=== PATIENT | male | born 1960 | race Caucasian/White ===

== ENCOUNTER 2016-05-20 09:57 | Day surgery (SDC) | payer MEDICAID, MEDICARE ==
[~2016-05-20] VITALS: Ht 175.3 cm; Wt 78.0 kg
--- NOTE | 2016-05-20 08:22 | PCM.HPANE ---
Patient Data Surgeon Admitting Provider: Attending Provider:Corey Patel MD Primary Care Physician:Marcela Mackenzie PA-C Other Provider:Andres Weir Anesthesia Reason for Visit Lower Abdominal Pain, Melena Ht/WT & BMI Body Mass Index Allergies Coded Allergies: acetaminophen (Verified Allergy, Severe, SWELLING IN THROAT, 05/20/16) dextromethorphan (Verified Allergy, Severe, SWELLING IN THROAT, 05/20/16) doxylamine (Verified Allergy, Severe, SWELLING IN THROAT, 05/20/16) pseudoephedrine (Verified Allergy, Severe, SWELLING IN THROAT, 05/20/16) Medications Reported Medications Omeprazole 20 Mg Tablet.dr20 Mg PO DAILY 05/20/16 Risperidone (Risperdal)1 Mg Tablet1 Mg PO BID #30 TABLET Ref 0 05/19/16 Albuterol HFA (Proair HFA)8.5 Gm Hfa.aer.ad2 Puffs INHALATION Q4H PRN For Shortness of Breath #1 INHALER 05/19/16 Methylphenidate ER 18 Mg Jwvvni79 Mg PO DAILY Ref 0 05/19/16 Gabapentin 300 Mg [id number] Mg PO DIRECTED PRN For Pain Ref 0 05/19/16 Citalopram 40 Mg Tpjitd37 Mg PO DAILY 30 Days Ref 0 05/19/16 Fluticasone/Salmeterol (Advair 250-50 Diskus)60 Puff/Inh Disk2 Puff IH BID #1 DISK Ref 0 05/19/16 History History of ENT Problems?: No Hx of Heart Problems?: No Respiratory History: Positive for:: COPD Hx Neurologic Problems?: No Hx of GI Problems?: Yes Hx of Problems?: No HX of Peritoneal Dialysis: No Hx Surgeries?: No Stop/Bang Treated for Sleep Apnea?: No Do You Have a CPAP Machine?: No Risk Assessment Category Category 1A: Patient has history of documented sleep apnea, and HAS NOT received any narcotic, sedative or anesthesia administration during this stay. Category 1B: Patient has history of documented sleep apnea, and HAS received any narcotic , sedative or anesthesia administration during this stay Category 2: Patient has SUSPECTED Obstructive Sleep Apnea, and HAS received any narcotic , sedative or anesthesia administration during this stay. Category 3: Patient has SUSPECTED Obstructive Sleep Apnea and HAS NOT received narcotic, sedative or anesthesia administration during this stay. Category 4: Outpatient in Procedural Areas with known sleep apnea or who screen positive for High Risk via the STOP/BANG questionnaire. Exam Exam General Appearance: Alert, Oriented X3, Cooperative, No Acute Distress HEENT/AIRWAY: MP 2 Lungs: Clear to Auscultation, Normal Air Movement Heart: Exam Unremarkable, Regular Rate/Rhythm, No Murmurs/Rubs/Gallops Plan Impression Patient chart reviewed, patient interviewed and anesthestic plan with risks, benefits, and alternatives discussed, and informed consent obtained. ASA Physical Status: ASA2 Mod Systemic Disease Anesthetic Plan: MAC Bene/Risks/Altern/Consents: Yes HP Complete Prior to Induction: Yes Osmin Weiner MD May 20, 2016 08:22
[~2016-05-20 09:57] MED LIST: ADV250INH IH; ALBU8.5H2 INHALATION; CITA40TA13 PO; GABA-502 PO; Lactated Ringer's 1,000 ML IV ONE; METH18TA12 PO; RISP1TAB90 PO
[2016-05-20] MEDS ORDERED: Ketamine 10 mg/mL 20 mL Inj ONE (09:58)
[2016-05-20] MEDS ORDERED: fentaNYL-PF 50 mCg/mL 2 mL Inj ONE (09:58)
[2016-05-20 10:53] VITALS: BP 126/84; PULSE 61; RESP 16; O2SAT 97
[2016-05-20] MEDS ORDERED: OMEP20TA86 PO (10:53)
[2016-05-20] MEDS ORDERED: MetoCLOpramide 5 mg/mL 2 mL Inj IVPUSH PRN (11:40)
[2016-05-20] MEDS ORDERED: Ondansetron 2 mg/mL 2 mL Inj IVPUSH PRN (11:40)
[2016-05-20] MEDS ORDERED: Lactated Ringer's 1,000 ML IV SCH (11:40)
[2016-05-20 12:27] VITALS: BP 107/71; PULSE 59; RESP 16; O2SAT 92
[2016-05-20 12:36] VITALS: BP 121/89; PULSE 57; RESP 16; O2SAT 94
[2016-05-20 12:41] VITALS: BP 127/92; PULSE 59; RESP 16; O2SAT 94
--- NOTE | 2016-05-20 13:54 | ENDO ---
[address] [address] ENDOSCOPY PROCEDURE PATIENT: DAVID CELESTE : 1960 MR#: [id number] ADMIT: 05/20/2016 JOB ID: [id number] DATE OF SERVICE: 05/20/2016 FIRST PROCEDURE PERFORMED: Esophagogastroduodenoscopy. INDICATION: History of melena. ASA CLASSIFICATION, MALLAMPATI SCORE AND MEDICATIONS: Please see anesthesia report for details regarding ASA classification, Mallampati score and medications. INSTRUMENT USED: [id number]. PROCEDURE DETAILS: After informed consent was obtained, the patient was brought into the GI suite, where he was placed on oxygen via nasal cannula and monitored with continuous pulse oximeter, telemetry, and blood pressure monitoring. A time-out was performed. Then, he was placed in the left lateral decubitus position, and medications were administered for sedation. A bite block was placed. A standard EGD scope was inserted through the bite block and advanced under direct visualization to the second portion of the duodenum without difficulty. FINDINGS: 1. Normal appearing duodenal bulb, first and second portions. 2. Normal appearing pylorus and antrum. In the proximal gastric body there was blood seen as we withdrew the scope. However, this was not initially seen when we advanced the scope past the GE junction into the antrum. I suspect the mild oozing of blood that was seen may be related to trauma. However, the mucosa there also appeared to be mildly friable and therefore, multiple biopsies were obtained. This area measured approximately a cm x 8 mm. 3. Hiatal hernia was noted. The diaphragmatic hiatus was at approximately 43 cm, and this area of friable mucosa was just below the diaphragmatic hiatus. 4. The GE junction was at approximately 38 cm. 5. Arising from the GE junction there were several tongues of short salmon-colored mucosa suggestive of Saldana's. Multiple biopsies were obtained in the distal esophagus. The remainder of the esophageal exam is otherwise unremarkable. IMPRESSION: 1. Friable mucosa versus scope trauma in the proximal gastric body. 2. Await biopsy results. 3. Hiatal hernia. 4. Irregular gastroesophageal junction. RECOMMENDATIONS: 1. Continue PPI b.i.d. 2. Await biopsy results. 3. Proceed to colonoscopy. COMPLICATIONS: None. ESTIMATED BLOOD LOSS: Less than 5 mL. SECOND PROCEDURE PERFORMED: Colonoscopy. INDICATION: Lower abdominal pain. ASA CLASSIFICATION, MALLAMPATI SCORE AND MEDICATIONS: Please see above for ASA classification, Mallampati score and medications. INSTRUMENT USED: [id number]-[id number]. PREPARATION QUALITY: Fair. PROCEDURE DETAILS: After completion of the EGD exam, a digital rectal exam with palpation of the prostate was performed which was unremarkable. The colonoscope was then inserted into the rectum and advanced under direct visualization to the cecum, which was identified by the presence of the ileocecal valve and appendiceal orifice. Once the cecum was reached, the colonoscope was withdrawn back to the rectum as the mucosa and lumen were examined. In the rectum, retroflexion was performed. Following retroflexion, remaining air in the rectum was suctioned, and procedure was completed. FINDINGS: 1. In the descending colon, there were four polyps that ranged in size from 3 mm to 5 mm. All polyps were removed using a cold snare. 2. Retroflexed views in the rectum were unremarkable. IMPRESSION: 1. Four descending colon polyps. 2. No findings to explain patient's abdominal pain. RECOMMEND: Urology consultation. A recent CT scan did show some mild urinary bladder thickening. COMPLICATIONS: None. ESTIMATED BLOOD LOSS: Less than 5 mL.
--- NOTE | 2016-05-20 14:10 | PCM.ANEP2 ---
Post Anesthesia Evaluation ASA/CMS Post Anesthesia VS in Patient's Normal Range?: Yes Resp Stable; Airway Patent?: Yes CV Function & Hydration Stable: Yes Mental Status Recovered?: Yes Pain control Satisfactory?: Yes N/V Control Satisfactory?: Yes Osmin Weiner MD May 20, 2016 14:10
--- NOTE | 2016-05-20 14:10 | PCM.ANEP1 ---
Post Anesthesia Phase 1 PACU Phase 1 Assessment Vital Signs Vital Signs Date Time Temp Pulse Resp B/P Pulse Ox O2 Delivery O2 Flow Rate FiO2 05/20/16 12:41 59 16 127/92 94 Room Air 05/20/16 12:36 57 16 121/89 94 Room Air 05/20/16 12:27 36.0 59 16 107/71 92 Room Air 05/20/16 10:53 36.6 61 16 126/84 97 Room Air Anesthetic Administered: MAC Level of Alertness: Awake, talking CAMPA's with Equal Strength: Yes Pain: No Nausea or Vomiting: No Oxygen Delivery: Nasal Cannula Lungs: Clear to Auscultation, Normal Air Movement Dermatome Level: Full Sensation Osmin Weiner MD May 20, 2016 14:10
--- NOTE | 2016-05-21 15:33 | PATH ---
SURGICAL PATHOLOGY Attending Physician:Joseline Pepe CASE STATUS: Signed Out PATIENT NAME: DAVID CELESTE PID: [id number] : 1960 DATE COLLECTED:05/20/2016 19:52 SPECIMEN: 1: Gastric, Biopsy 2: Esophagus, Biopsy 3: Colon, Biopsy CLINICAL HISTORY: 1). PROXIMAL GASTRIC BODY BIOPSY 2). DISTAL ESOPHAGUS BIOPSY 3). DESCENDING COLON POLYPS X4 FINAL DIAGNOSIS: 1.PROXIMAL GASTRIC BODY BIOPSY: BODY MUCOSA WITH DILATED GLANDS SUGGESTIVE OF PPI EFFECT. Negative for Helicobacter organisms. Negative for intestinal metaplasia. Negative for dysplasia and malignancy. 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 Negative for dysplasia and malignancy. 3.DESCENDING COLON POLYPS: MULTIPLE FRAGMENTS OF TUBULAR ADENOMA. FOUR POLYPS REMOVED. ICD10 CODE K29.70 K22.70 D12.4 GROSS DESCRIPTION: The specimen is received in three formalin filled containers labeled with the patient's name. 1). The specimen is sublabeled "proximal gastric body" and consists of a 0.3 x 0.2 x 0.2 CM portion of tissue which is entirely submitted in cassette 1A. 2). The specimen is sublabeled "distal esophagus" and consists of 4 portions of tissue which aggregate to 0.4 x 0.4 x 0.2 CM. The specimen is entirely submitted in cassette 2A. 3). The specimen is sublabeled "descending colon polyp" and consists of 4 portions of tissue which aggregate to 0.4 x 0.3 x 0.2 CM. The specimen is entirely submitted in cassette 3A. 05/20/2016 [facility] MICRO DESCRIPTION: See diagnosis. ICD-9 CODES: CPT CODES: 1: 00862 2: 51835 3: 88638 Electronically Signed Out Tessie Sequeira MD [facility] [address], [place] [address] Technical component performed at [facility], [facility] [address], [place], [address]
== END 2016-05-20 23:59 | disposition home or self-care (01) ==
LOC: END 09:57
PROVIDERS: ATTEND Internal Medicine Gastroenterology
DX: D12.4 Benign neoplasm of descending colon (principal); R10.30 Lower abdominal pain, unspecified; K44.9 Diaphragmatic hernia without obstruction or gangrene; F17.210 Nicotine dependence, cigarettes, uncomplicated; K21.9 Gastro-esophageal reflux disease without esophagitis; B18.2 Chronic viral hepatitis C; J43.9 Emphysema, unspecified
CPT/HCPCS: 43239; 45385; 88305; J2250; J7120

== ENCOUNTER 2016-07-15 08:37 | Day surgery (SDC) | payer MEDICAID, MEDICARE ==
[2016-07-15] VITALS (8 sets, daily range): BP systolic 115–145; BP diastolic 78–98; PULSE 58–72; RESP 12–16; O2SAT 91–98
[~2016-07-15] VITALS: Ht 175.3 cm; Wt 82.0 kg
[~2016-07-15 08:37] MED LIST changes: +CeFAZolin Inj 2 GM in IV Premix 1 EACH IV ONE; -Lactated Ringer's 1,000 ML IV ONE; +OMEP20TA86 PO
[2016-07-15] MEDS ORDERED: Dexamethasone 4 mg/mL Inj ONE (08:38)
[2016-07-15] MEDS ORDERED: MeTOProlol 1 mg/mL 5 mL Inj ONE (08:38)
[2016-07-15] MEDS ORDERED: fentaNYL-PF 50 mCg/mL 2 mL Inj ONE (08:38)
[2016-07-15] MEDS ORDERED: Propofol 10,000 mCg/mL 20 mL Inj ONE (08:38)
[2016-07-15] MEDS ORDERED: Ondansetron 2 mg/mL 2 mL Inj ONE (08:38)
[2016-07-15] MEDS: Lactated Ringer's 1,000 ML IV SCH ×2 (09:25→10:48)
--- NOTE | 2016-07-15 10:41 | PCM.HPANE ---
Patient Data Date of Service: Jul 15, 2016 Surgeon Admitting Provider: Attending Provider:Ralph Venegas MD Primary Care Physician:Marcela Mackenzie PA-C Other Provider:Andres Weir Anesthesia Reason for Visit Umbilical Hernia Ht/WT & BMI Height (Feet): 5 Height (Inches): 9 Weight (Kilograms): 82 Body Mass Index 26.00 Allergies Coded Allergies: dextromethorphan (Verified Allergy, Severe, SWELLING IN THROAT, 05/20/16) doxylamine (Verified Allergy, Severe, SWELLING IN THROAT, 05/20/16) pseudoephedrine (Verified Allergy, Severe, SWELLING IN THROAT, 05/20/16) Past Anesthesia History Anesthesia History: Denies:: Abnormal Airway, Anesthesia Reactions, Difficult Intubation, Fam Anesthesia Reaction, Fam Malignant Hypertherm, Malignant Hyperthermia Diabetes History Hx Diabetes?: No MRSA MRSA: No Medications Hypertension Medication: No Home Meds Incl Beta Abel: No Reported Medications Omeprazole 20 Mg Tablet.dr20 Mg PO DAILY 05/20/16 Risperidone (Risperdal)1 Mg Tablet1 Mg PO BID #30 TABLET Ref 0 05/19/16 Albuterol HFA (Proair HFA)8.5 Gm Hfa.aer.ad2 Puffs INHALATION Q4H PRN For Shortness of Breath #1 INHALER 05/19/16 Methylphenidate ER 18 Mg Hyalav79 Mg PO DAILY Ref 0 05/19/16 Gabapentin 300 Mg Capsule1-2 Tab PO up to 5x daily PRN For Pain Ref 0 05/19/16 Citalopram 40 Mg Envggv90 Mg PO DAILY 30 Days Ref 0 05/19/16 Fluticasone/Salmeterol (Advair 250-50 Diskus)60 Puff/Inh Disk2 Puff IH BID #1 DISK Ref 0 05/19/16 History History of ENT Problems?: No HEENT History: Denies:: Abnormal Airway Cataracts Difficult Intubation Dysphagia Glaucoma Hearing Problem Sinus Problem TMJ Teeth Condition: Missing Teeth Hx of Heart Problems?: No Cardiovascular History: Denies:: AICD Abdominal Aortic Aneurism Atrial Fibrillation Chest Pain Edema Heart Murmur Hypertension Irregular Heartbeat Pacemaker Peripheral Vascular Hx of Respiratory Problem?: Yes Respiratory History: Positive for:: Asthma COPD Dyspnea (can go up flight of stairs without SOB) Use of Inhalers / NEBS Denies:: Emphysema Oxygen Administration Pneumonia Tuberculosis Use of C-PAP Machine Other Resp Pertinent History: smoker, 1ppd, albuterol 3-4x daily Hx Neurologic Problems?: No Neurological History: Denies:: CVA Headaches Multiple Sclerosis Parkinson's Disease Seizures TIA Hx of GI Problems?: Yes Gastrointestinal History: Positive for:: Gastroesphageal Reflux Heartburn Hepatitis (Hep C- untreated no symptoms) Liver Disease (HEPATITIS C) Rectal Bleeding (black tarry stoools approx 90 days ago) Denies:: Cirrhosis Gall Bladder Disease Gastrointestinal Bleeding Other GI Pertinent History: umbilical hernia current admission problem Hx of Problems?: No Genitourinary History: Denies:: Kidney Stones Urinary Tract Infection HX of Peritoneal Dialysis: No Male Hx: Denies:: Prostate Problems Scrotal Mass Testicular Surgery Skin History: Denies:: History Skin Disorders? Pressure Ulcers Hx Musculoskeletal Problems?: No Musculoskeletal History: Denies:: Back Injury Fibromyalgia Joint Replacement Musculoskeletal Trauma Myasthenia Gravis Osteoarthritis Hx of Psycho/Social Problems?: Yes Psycho Social History: Positive for:: Anxiety Hx Depression Other Psych Pertinent History: ADD, h/o ETOH abuse Hx Surgeries?: Yes (fang knees, right ing hernia) Hx Any Other Health Problems?: Yes Other History: Denies:: Cancer Thyroid Disease History Blood Transfusions: Positive for:: Accept Blood Products? Denies:: Blood Transfusions Hx Diabetes: No Hx Alcohol Use: YesAlcoholic Drinks Per Day: 2 beers dailyHx Substance Use: Yes (marijuana daily- inhale and edible; ETOH abuse) Smoking Status: Heavy Tobacco Smoker Have You Smoked inLast 12 mo: Yes Stop/Bang Treated for Sleep Apnea?: No Do You Have a CPAP Machine?: No S-Snoring: Do You Snore Loudly: No T-Tired: feel tired, fatigued: Yes O-Obsered: Observed not breath: No P-Blood Pressure: treated: No B- Body Mass Index > 35 kg/m2: No A- Age over 50: Yes N- Neck Large Circumference: No G- Gender Male: Yes ELLIS Total Score: 3 ELLIS Risk Assessment: Low Risk, <3 Yes Risk Assessment Category Category 1A: Patient has history of documented sleep apnea, and HAS NOT received any narcotic, sedative or anesthesia administration during this stay. Category 1B: Patient has history of documented sleep apnea, and HAS received any narcotic , sedative or anesthesia administration during this stay Category 2: Patient has SUSPECTED Obstructive Sleep Apnea, and HAS received any narcotic , sedative or anesthesia administration during this stay. Category 3: Patient has SUSPECTED Obstructive Sleep Apnea and HAS NOT received narcotic, sedative or anesthesia administration during this stay. Category 4: Outpatient in Procedural Areas with known sleep apnea or who screen positive for High Risk via the STOP/BANG questionnaire. Exam Exam Vital Signs Vital Signs Date Time Temp Pulse Resp B/P Pulse Ox O2 Delivery O2 Flow Rate FiO2 07/15/16 09:03 36.6 58 16 133/84 97 Room Air General Appearance: Alert, Oriented X3, Cooperative, No Acute Distress HEENT/AIRWAY: MP 2, Neck Movement (FROM), Mouth Opening (3), Other (TMD3) Lungs: Diminished, Coarse, Wheezes Heart: Exam Unremarkable, Regular Rate/Rhythm, Normal S1, Normal S2, No Murmurs /Rubs/Gallops Meds/Labs/Diagnostics Admission Meds Current Medications Lactated Ringer's (Lr) 1,000 ml @ 120 mls/hr Q8H20M IV Last administered on t 09:25; Start 07/15/16 at 05:00; Stop 07/15/16 at 13:19 Plan Impression Patient chart reviewed, patient interviewed and anesthestic plan with risks, benefits, and alternatives discussed, and informed consent obtained. NPO Status: 0600 WATER WITH MEDS ASA Physical Status: ASA3 Severe Disease Anesthetic Plan: GA Bene/Risks/Altern/Consents: Yes HP Complete Prior to Induction: Yes Jones Umanzor MD Jul 15, 2016 10:41
[2016-07-15] MEDS ORDERED: Lactated Ringer's 1,000 ML IV SCH (11:39)
[2016-07-15] MEDS ORDERED: Lactated Ringer's 500 ML IV PRN (11:39)
[2016-07-15] MEDS ORDERED: MetoCLOpramide 5 mg/mL 2 mL Inj IVPUSH PRN (11:40)
[2016-07-15] MEDS ORDERED: Ondansetron 2 mg/mL 2 mL Inj IVPUSH PRN (11:40)
[2016-07-15] MEDS ORDERED: Phenylephrine 10,000 mCg/mL Inj IVPUSH PRN (11:40)
[2016-07-15] MEDS ORDERED: HYDROmorphone 1 mg/mL Inj IVPUSH PRN (11:40)
[2016-07-15] MEDS ORDERED: EPHEDrine Sulfate 50 mg/mL Inj IVPUSH PRN (11:40)
[2016-07-15] MEDS ORDERED: Dexamethasone 4 mg/mL Inj IVPUSH PRN (11:40)
[2016-07-15] MEDS ORDERED: oxyCODONE-Acetamin 5-325 mg Tablet PO PRN (11:45)
--- NOTE | 2016-07-15 11:46 | OP ---
[address] [address] OPERATIVE REPORT PATIENT: DAVID CELESTE : 1960 MR#: [id number] ADMIT: 07/15/2016 JOB ID: [id number] DATE OF SURGERY: 07/15/2016 ANESTHESIA: General. PREOPERATIVE DIAGNOSIS(ES): Symptomatic umbilical hernia. POSTOPERATIVE DIAGNOSIS(ES): Symptomatic umbilical hernia. OPERATIVE PROCEDURE: Open repair of umbilical hernia with mesh. SURGEON: Ralph Venegas MD WIRELESS FIELD TECHNICIAN: Sher Alaniz PA-C (the acute care nursing assistant was brought in for the safe and timely completion of the case). COMPLICATIONS: None. ESTIMATED BLOOD LOSS: Minimal. CONDITION: Satisfactory. FINDINGS: There was approximately 1.5 cm fascial defect. This was repaired with a small Ventralex patch. INDICATIONS/SIGNIFICANT HISTORY: The patient is a 55-year-old man who has been experiencing umbilical pain for the past 4 or 5 months. Has also noticed a bulge. He is referred to me and I diagnosed him with an umbilical hernia and recommended repair. OPERATIVE TECHNIQUE: The patient was taken into the operating room and placed in the supine position. General anesthesia was administered and perioperative antibiotics were given. The abdomen was prepped and draped in a standard surgical fashion and a procedural pause was performed. A curvilinear infraumbilical incision was made. Dissection carried down through the skin and subcutaneous tissue. The umbilical stalk was circumferentially dissected free and then opened. There was some incarcerated fat which was reduced. The umbilical stalk was then completely transected. The fascia was cleared anteriorly and posteriorly. A small Ventralex patch was inserted in a sublay fashion and incorporating the transverse closure with interrupted 0 Prolene sutures. The umbilicus was then tacked down to the fascia using the 3-0 PDS. 3-0 PDS deep dermals were then placed followed by a running 4-0 Monocryl. Local anesthetic was injected. The entire procedure was well tolerated without complication.
[2016-07-15] MEDS: fentaNYL-PF 50 mCg/mL 2 mL Inj IVPUSH PRN ×2 (12:05→12:15)
--- NOTE | 2016-07-15 18:37 | PCM.ANEP1 ---
Post Anesthesia Phase 1 PACU Phase 1 Assessment Date of Service: Jul 15, 2016 Vital Signs Vital Signs Date Time Temp Pulse Resp B/P Pulse Ox O2 Delivery O2 Flow Rate FiO2 07/15/16 12:42 36.6 65 16 129/78 95 Room Air 07/15/16 12:35 66 16 140/88 94 Room Air 07/15/16 12:15 65 15 132/91 93 Room Air 07/15/16 12:05 70 13 144/90 91 Room Air 07/15/16 12:00 67 12 115/98 97 Room Air 07/15/16 11:55 72 15 145/84 97 Simple Mask 07/15/16 11:50 36.5 64 14 118/85 98 Simple Mask Anesthetic Administered: GA Level of Alertness: Awake, talking CAMPA's with Equal Strength: Yes Pain: No Pain Scale Score: 0 Nausea or Vomiting: No Oxygen Delivery: Simple Mask Lungs: Diminished, Coarse, Wheezes Jones Umanzor MD Jul 15, 2016 18:37
--- NOTE | 2016-07-15 18:37 | PCM.ANEP2 ---
Post Anesthesia Evaluation ASA/CMS Post Anesthesia VS in Patient's Normal Range?: Yes Resp Stable; Airway Patent?: Yes CV Function & Hydration Stable: Yes Mental Status Recovered?: Yes Pain control Satisfactory?: Yes N/V Control Satisfactory?: Yes Jones Umanzor MD Jul 15, 2016 18:37
== END 2016-07-15 23:59 | disposition home or self-care (01) ==
LOC: SAS 08:37
PROVIDERS: ATTEND General Practice
PROC: 0WUF0JZ Supplement Abdominal Wall with Synthetic Substitute, Open Approach (ICD-10-PCS; principal; 2016-07-15 10:45)
DX: K42.9 Umbilical hernia without obstruction or gangrene (principal); J44.9 Chronic obstructive pulmonary disease, unspecified; F17.210 Nicotine dependence, cigarettes, uncomplicated; J45.909 Unspecified asthma, uncomplicated; B19.20 Unspecified viral hepatitis C without hepatic coma
CPT/HCPCS: 49585; C1781; J0690; J1100; J2250; J2405; J3010; J7120